=== PATIENT | male | born 1990 | race Caucasian/White ===

== ENCOUNTER 2023-09-03 12:57 | Outpatient (REF) | payer OTHER, SELFPAY | END 2023-09-03 12:58 | disposition home or self-care (01) | LOC: HO.HAP 12:57 | PROVIDERS: Visit Provider Physician Assistant | DX: Z46.1 Encounter for fitting and adjustment of hearing aid (principal); H90.3 Sensorineural hearing loss, bilateral | CPT/HCPCS: 92591; V5275 ==

== ENCOUNTER 2023-10-08 08:47 | Outpatient (REF) | payer OTHER, SELFPAY ==
--- NOTE | 2023-10-08 09:47 | MHC.AU.HA2 ---
Hearing Instrument Fitting- Adult- Binaural Date of Visit: 10/08/23 Hearing Instruments Dispensed: Right Ear: Make, Model, Color, Serial Number: Mike LR 1600 ITC-[id number] SN: [id number] Color: Black Senior Lead Software Engineer Repair Warranty: 10/11/2026 Senior Lead Software Engineer Loss and Damage Warranty: 10/11/2026 [facility] Service Plan: 10/08/2024 Battery Size: Rechargeable Type of Wax Guard: Hear Clear Left Ear: Make, Model, Color, Serial Number: Mike LR 1600 ITC-[id number] SN: [id number] Color: Black Senior Lead Software Engineer Repair Warranty: 10/11/2026 Senior Lead Software Engineer Loss and Damage Warranty: 10/11/2026 [facility] Service Plan: 10/08/2024 Battery Size: Rechargeable Type of Wax Guard: Hear Clear Accessories/Assistive Technology: Mike Custom Geospatial Imagery Intelligence Analyst SN: [id number] Warranty: 10/11/2026 Summary of Fitting: Ran real ear measures then decreased to experience level 2 due to echo sound quality and slight occlusion. Discussed care and use including rechargeability, manually turning on/off, volume control use, and changing wax guard. Practiced insertion and removal. Km was able to manipulate the hearing aids easily. Explained importance of daily, consistent use and acclimatization period. Did not pair to cell phone at this time - will do at follow up. Recommendations: A hearing instrument follow-up was scheduled. Diagnosis Code(s): Primary Diagnosis: H90.6 Mixed Hearing Loss, Bilateral Signature: Provider: Slava Ramachandran, [facility]
== END 2023-10-08 08:48 | disposition home or self-care (01) ==
LOC: HO.HAP 08:47
PROVIDERS: Visit Provider Internal Medicine
DX: Z46.1 Encounter for fitting and adjustment of hearing aid (principal); H90.6 Mixed conductive and sensorineural hearing loss, bilateral
CPT/HCPCS: V5011; V5020; V5160; V5259

== ENCOUNTER 2023-10-29 15:51 | Outpatient (REF) | payer OTHER, SELFPAY | END 2023-10-29 15:52 | disposition home or self-care (01) | LOC: HO.HAP 15:51 | PROVIDERS: Visit Provider Internal Medicine | DX: Z13.89 Encounter for screening for other disorder (principal) ==

== ENCOUNTER 2025-07-11 12:53 | Outpatient (AMB) | payer OTHER, SELFPAY ==
--- NOTE | 2025-07-11 12:55 | MHC.OFFVIS ---
Intake Visit Reasons: 6 month Insomnia Allergies amoxicillin (AMOXICILLIN) Allergy (Unknown, Unverified 07/11/25 13:00) UNKNOWN fluoxetine (From PROZAC) Allergy (Unknown, Unverified 07/11/25 13:00) ANAPHYLAXIS Medication List - Last Reconciled 07/11/25 by Jackelyn Reed CNP bisacodyl 5 mg PO BEDTIME clonazepam (Klonopin) 0.5 mg PO BEDTIME 30 days linaclotide (Linzess) 145 mcg PO DAILY pantoprazole 20 mg PO DAILY tizanidine 4 mg PO BID PRN HPI Comments Details: 35-year-old RH man with h/o chronic vertigo with MRI brain in 2019 revealing bilateral mastoiditis type findings, non-epileptic spells diagnosed as conversion disorder (as per [facility] records, diagnosis made at [facility] with video EEG). He started having these spells when he was 10 years old without any particular emotional stress or trauma. He lost his job in 02/2025, and has been working 3rd shift Friday to since mid-04/2025. He was having trouble adjusting to new schedule and sleep was not so good. Clonazepam was helping. No spells. No medication side effects. Mood was up and down. 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 Anxiety disorder Review of Systems Const Denies chills, Denies daytime sleepiness, Reports difficulty sleeping, Denies fatigue, Denies fever(s), Denies frequent falls, Denies headache(s), Denies increased appetite, Denies poor appetite, Denies snoring, Denies weakness, Denies weight gain and Denies weight loss Eyes Denies loss of vision ENT Denies vertigo, Denies dizziness and Denies headache(s) Card Denies chest pain at rest, Denies chest pain with activity, Denies syncope, Denies leg edema and Denies palpitations Resp Denies snoring GI Denies constipation, Denies heartburn, Denies diarrhea and Denies nausea Denies urinary frequency, Denies urinary incontinence and Denies urinary urgency Musc Denies abnormal gait, Denies numbness and Denies tingling Skin/Breast Denies dry skin and Denies rash Neuro Denies abnormal gait, Denies vertigo, Denies dizziness, Denies syncope, Denies frequent falls, Denies headache(s), Denies lack of coordination, Denies loss of vision, Denies memory loss, Denies numbness, Denies restless legs, Denies seizure-like activity, Denies tingling, Denies paresthesias, Denies tremor(s) and Denies weakness Psych Denies anxiety, Denies depression, Denies auditory hallucinations, Denies memory loss, Denies visual hallucinations and Denies suicidal ideation Endo Denies fatigue and Denies palpitations Physical Exam Const Other: General Appearance:? normal, in no acute distress. Skin:? no rashes, no significant birthmarks. Heart:? S1, S2 normal, no murmurs. Lungs:? clear anteriorly and posteriorly. Extremities:? no edema. Psych:? alert, oriented, cognitive function intact, cooperative with exam. Neuro Other: Mental Status:?Normal attention, orientation, memory and affect.? Cranial Nerves:?Pupils are equal, round and reactive to light. External occular muscles are intact. Visual herrera are full. Face is symmetrical. Facial sensations are normal. Tongue is midline. Palate elevates symmetrically. Shoulder shrugging is normal. Hearing to bedside conversation is normal. Sensory Exam:?....? Coordination:?No ataxia,?no titubation.? Gait Exam: Within normal limits. Extrapyramidal System:?No tremor, rigidity with normal facial expressions.? Pronator Drift:?Not present.? Involuntary Movements:?No tremors seen.? Speech:?Normal.? Results Reviewed Results Reviewed: MRI brain O at [facility] 2019: b/l mastoiditis (reported) Assessment & Plan Assessment & Plan (1) Insomnia: Code(s): G47.00 - Insomnia, unspecified Category: Medical Qualifiers: Insomnia type: unspecified Qualified Code(s): G47.00 - Insomnia, unspecified Plan: Continue clonazepam 0.5mg 1 tablet at bedtime. (2) Anxiety disorder: Code(s): F41.9 - Anxiety disorder, unspecified Category: Medical Qualifiers: Anxiety disorder type: unspecified anxiety disorder Qualified Code(s): F41.9 - Anxiety disorder, unspecified (3) Nonepileptic episode: Code(s): R56.9 - Unspecified convulsions Category: Medical Plan Meds tried: amitriptyline, fluoxetine, buspirone, trazodone Coding Level of Care Code Est Pt Level 4 (78415) Diagnoses Insomnia, unspecified type G47.00 Insomnia type: unspecified Anxiety disorder, unspecified type F41.9 Anxiety disorder type: unspecified anxiety disorder Nonepileptic episode R56.9
--- OUTSIDE RECORDS SUMMARY | 2025-07-11 13:45 | XMS_ITS | Clinical Summary ---
Author Organization [address] [facility] Address [address] [place] [address] Phone Care Team Providers Care Knocker Out Name Role Phone Denys Casey MD Primary Care Provider [phone] Allergies Active Allergy Reactions Criticality Noted Date Comments Amoxicillin 04/04/2014 Very young, unable to comment Fluoxetine Anaphylaxis High 04/04/2014 Zolpidem 04/09/2021 Complex sleep behaviors (sleep walking/talking) Medications clonazePAM (KlonoPIN) 0.5 mg tablet Take 1 tablet (0.5 mg total) by mouth. Prescribed by Neurologist Active linaCLOtide (Linzess) 145 mcg capsule Take 1 capsule (145 mcg total) by mouth 1 (one) time each day. Prescribed by Dr. Montanez. 08/16/20 24 Active tiZANidine (ZANAFLEX) 2 mg tablet Take 1 tablet (2 mg total) by mouth 1 (one) time each day. Prescribed by Ortho. 06/01/20 24 Active MAGNESIUM ORAL Take by mouth 1 (one) time each day. Prescribed by Dr. Wang (Nephrology) Active Laxative, bisacodyl, 5 mg EC tablet Take 1 tablet (5 mg total) by mouth 2 (two) times a day. Do not crush, chew, or split. 60 tablet 3 05/09/20 25 026 Active pantoprazole (PROTONIX) 20 mg EC tabletIndicati ons:Sawyer's esophagus without dysplasia TAKE 1 TABLET BY MOUTH EVERY DAY 90 tablet 1 06/30/20 25 Active pantoprazole (PROTONIX) 20 mg EC tabletIndicati ons:Sawyer's esophagus without dysplasia TAKE 1 TABLET BY MOUTH EVERY DAY 90 tablet 1 01/04/20 25 025 Discontinued azithromycin (ZITHROMAX) 250 mg tablet Take 2 tablets (500 mg total) by mouth 1 (one) time each day for 1 day, THEN 1 tablet (250 mg total) 1 (one) time each day for 4 days. 6 each 06/06/20 25 025 Discontinued clindamycin (CLEOCIN) 300 mg capsule Take 1 capsule (300 mg total) by mouth 4 (four) times a day for 10 days. 40 each 06/15/20 25 025 Active Problems Problem Noted Date Diagnosed Date Gastroesophageal reflux disease without esophagi tis 07/26/2019 Epigastric abdominal pain 07/26/2019 Superficial gastritis with hemorrhage 07/26/2019 Overweight 06/16/2019 Hyperlipidemia 06/16/2019 Hypercalcemia 08/23/2016 Gastroparesis 08/23/2016 Nephrolithiasis 08/23/2016 Psychiatric disorder 08/23/2016 Thoracic disc herniation 08/23/2016 Spina bifida occulta 08/23/2016 Kyphosis 08/23/2016 Sawyer's esophagus 06/28/2016 Overview (09/08/2024): Wilma; 05/13 Recent endoscopy May 24, 2024, per GI, repeat in 5 years. Insomnia 01/31/2016 Scheuermann disease 12/01/2015 Overview (09/08/2024): Per pt's report, followed by ortho Anxiety 02/28/2015 Vertigo 02/28/2015 Increased PTH level 08/15/2014 Vitamin D deficiency 08/15/2014 Sleep apnea 08/15/2014 Conversion disorder with seizures or convulsions 08/15/2014 Obesity 04/04/2014 Encounters Date Type Department Care Team Description 06/15/2025 11:30 AM EDT Office Visit Adult Medicine [address] [phone] Shannon Cespedes, CHIKIS Acute otitis media, unspecified otitis media type (Primary Dx) 06/15/2025 Telephone Adult Medicine [address] [phone] Denys Casey MD ear infection 06/06/2025 11:30 AM EDT Office Visit Adult Medicine [address] [phone] Shannon Cespedes NP Acute otitis media, unspecified otitis media type (Primary Dx) 06/06/2025 Telephone Adult [address] [phone] Denys Casey MD Ear Drainage; Ear Injury 05/09/2025 2:00 PM EDT Office Visit Gastroenterology - [place] [address] [place] [address] Brielle Montanez PA Sawyer's esophagus without dysplasia (Primary Dx); Gastroparesis; Irritable bowel syndrome with constipation from Last 3 Months Immunizations Name Administration Dates Next Due Influenza trivalent, 0.5mL (Fluad) 65yo and olde r 09/05/2021 Influenza, Unspecified 11/09/2023 Moderna SARS-CoV-2 COVID-19, mRNA, LNP-S, preservative free 09/30/2021 Td Tetanus diptheria (Tdvax) 7yo and older 02/22 Tdap Tetanus diptheria acell ular pertussis (Boostrix; Adacel) 7yo and older 08/02/2011 Medical History Medical History Date Comments Sleep apnea 08/15/2014 DX:Sleep apnea Severe obesity (CMS/HCC V24, CMS/HCC V28) 014 DX:Severe obesity (HCC) Conversion disorder with sei zures or convulsions 08/15/2014 DX:Conversion disorder with seizures or convulsions Hypercholesterolemia 08/30/2014 DX:Hypercho lesterolemia Scheuermann disease 12/01/2015 DX:Scheuerma nn disease; COMMENT: Per pt's report, followed by ortho Kidney stone 09/04/2017 DX:Kidney stone; COMMENT: Documented kidney stone, multiple visits with [facility] in area ERs, 17 opiates prescriptions in 12 months, as noted by ER staff. ER has concern for patient altering urine obtained opiates Family History Medical History Relation Name Comments Other: no info on father's side Father Other: chronic back pain Mother Relation Name Status Comments Father Mother Alive Social History Tobacco Use Types Packs/Day Years Used Date Smoking Tobacco: Never Smokeless Tobacco: Never Tobacco Cessation:Counseling Given: Not Answered Alcohol Use Standard Drinks/Week Comments No 0 (1 standard drink = 0.6 oz pur e alcohol) Sex and Gender Information Value Date Recorded Sex Assigned at Not on file Legal Sex Male 10:47 AM EST Gender Identity Not on file Sexual Orientation Not on file Obstetrics History Last Filed Vital Signs Vital Sign Reading Time Taken Comments Blood Pressure 118/76 06/15/2025 11:12 AM EDT Pulse 80 06/15/2025 11:12 AM EDT Temperature 36.2 C (97.1 F) 06/15/2025 11:12 AM EDT Respiratory Rate 14 06/15/2025 11:12 AM EDT Oxygen Saturation 98% 05/09/2025 2:06 PM EDT Inhaled Oxygen Concentration - - Weight 117 kg (257 lb) 06/15/2025 11:12 AM EDT Height 190.5 cm (6' 3 ) 06/15/2025 11:12 AM EDT Body Mass Index 32.12 06/15/2025 11:12 AM EDT Plan of Treatment Upcoming Encounters Date Type Department Care Team (Late st Contact Info) Description 07/11/2025 3:30 PM EDT Office Visit Adult Medicine [facility] [address] [place] [phone] Denys Casey MD [address] [place] [address] 12/12/2025 2:00 PM EST Office Visit Gastroenterology - [place] [address] [place] [phone] Brielle Montanez PA [address] [place] [address] Health Maintenance Due Date Last Done Comments Hepatitis B Vaccines (1 of 3 - 19+ 3-dose series) 02/11/2007 HIV Screening 10/22/2022 Hepatitis C Screening 10/22/2022 Social Influencers of Health Screening 01/24/2024 01/23/2023 COVID-19 Vaccine (2023- season) 2024 11/09/2023, 08/26/2022, 09/30/2021, Additional history exists Depression Screening 11/24/2024 Influenza Vaccine (#1) 2025 3, 09/05/2021, 10/07/2016, Additional history exists DTaP,Tdap,and Td Vaccines (4 - Td or Tdap) 02/23/2028 02/22/2018, 08/05/2017, 08/02/2011 Cholesterol Screening (Lipid Panel) 07/08/2030 07/08/2025, 05/03/2024 HIB Vaccines Aged Out No longer eligi ble based on patient's age to complete this topic HPV Vaccines Aged Out No longer eligi ble based on patient's age to complete this topic Hepatitis A Vaccines Aged Out No long er eligible based on patient's age to complete this topic IPV Vaccines Aged Out No longer eligi ble based on patient's age to complete this topic MMR Vaccines Aged Out No longer eligi ble based on patient's age to complete this topic Meningococcal ACWY Vaccine Aged Out N o longer eligible based on patient's age to complete this topic Meningococcal B Vaccine Aged Out No l onger eligible based on patient's age to complete this topic Pneumococcal Vaccine: Pediatrics (0 to 5 Years) and At-Risk Patients (6 to 49 Years) Aged Out No longer eligible based on patient's age to complete this topic RSV Immunization Patients Under 20 months Aged Out No longer eligible based on patient's age to complete this topic Varicella Vaccines Aged Out No longer eligible based on patient's age to complete this topic Procedures Procedure Name Priority Date/Time Associated Diagnosis Comments LIPID PANEL WITH REFLEX TO DIRECT LDL Routine 07/08/2025 4:06 PM EDT Other hyperlipidemia from Last 3 Months Results * (ABNORMAL) Lipid panel with reflex to direct LDL (07/08/2025 4:06 PM EDT) Cholesterol 266(H) 0 - 200 mg/dL LAB CHEMISTRY METHOD 07/08/2025 7:[address] [facility] Triglycerides 154(H) 0 - 150 mg/dL LAB CHEMISTRY METHOD 07/08/2025 7:[address] [facility] HDL 69 >=40 mg/dL LAB CHEMISTRY METHOD 07/08/2025 7:[address] [facility] LDL Calculated 166(H) 0 - 100 mg/dL LAB CHEMISTRY METHOD 07/08/2025 7:[address] [facility] Comment:Estimated LDL Calcul ated using equation: Total cholesterol - HDL cholesterol - (Triglycerides/5) VLDL Cholesterol Dain 30.8 mg/dL LAB CHEMISTRY METHOD 07/08/2025 7:[address] [facility] Non HDL Chol. (LDL+VLDL) 197(H) <145 mg/dL LAB CHEMISTRY METHOD 07/08/2025 7:[address] [facility] Chol/HDL Ratio 3.9 0.0 - 4.4 LAB CHEMISTRY METHOD 07/08/2025 7:[address] [facility] Blood Venous blood specimen / Unknown Venipuncture / Unknown 07/08/2025 4:06 PM EDT 07/08/2025 4:06 PM EDT Denys Casey MD LAB BLOOD ORDERABLES Final Resul t 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 Health Care Decision (hx) 05/18/2015 AD SILVERIO DIRECTIVE Health Care Decision (hx) 05/18/2015 AD SILVERIO DIRECTIVE Health Care Decision (hx) 05/18/2015 AD SILVERIO DIRECTIVE Health Care Decision (hx) 05/18/2015 AD SILVERIO DIRECTIVE Health Care Decision (hx) 05/18/2015 AD SILVERIO DIRECTIVE Health Care Decision (hx) 05/18/2015 AD SILVERIO DIRECTIVE Health Care Decision (hx) 05/18/2015 AD SILVERIO DIRECTIVE Health Care Decision (hx) 05/18/2015 AD SILVERIO DIRECTIVE Health Care Decision (hx) 05/18/2015 AD SILVERIO DIRECTIVE Health Care Decision (hx) 05/18/2015 AD SILVERIO DIRECTIVE Health Care Decision (hx) 05/18/2015 AD SILVERIO DIRECTIVE Care Teams Knocker Out Relationship Specialty Start Date End Date Denys Casey MD [address] [place] [address] PCP - General Internal Medicine 04/04/14
--- OUTSIDE RECORDS SUMMARY | 2025-07-11 13:45 | XMS_ITS | Encounter Summary ---
Author Organization [facility] Address [address] [place] [address] Care Team Providers Care Mixing Engineer Name Role Phone Denys Casey MD Primary Care Provider [phone] Denys Casey MD Unavailable Encounter Details Date Type Department Care Team Description 05/17/2019 Public Records Researcher Report Medical Records [address] [place] [id number] Enzo Ewing MD Social History Tobacco Use Types Packs/Day Years Used Date Smoking Tobacco: Never Smokeless Tobacco: Never Alcohol Use Standard Drinks/Week Comments No 0 (1 standard drink = 0.6 oz pur e alcohol) Sex Assigned at Date Recorded Male 10/15/2022 4:[address] Job Start Date Occupation Industry Not on file Not on file Not on file documented as of this encounter Plan of Treatment Not on file documented as of this encounter Visit Diagnoses Not on filedocumented in this encounter Care Teams Mixing Engineer Relationship Specialty Start Date End Date Denys Casey MD [address] [place] [address] [phone] PCP - General 07/16/14 Denys Casey MD [address] [place] [address] [phone] Internal Medicine 07/16/14 documented as of this encounter
--- OUTSIDE RECORDS SUMMARY | 2025-07-11 13:46 | XMS_ITS | Clinical Summary ---
Author Organization [facility], Address [address] [place] [address] [place] [address] Phone Care Team Providers Care Field Clinical Engineer Name Role Phone Denys Casey MD Primary Care Provider [phone] Allergies Active Allergy Reactions Criticality Noted Date Comments Amoxicillin Other (see comments) 04/04/2014 Very young, unable to comment Fluoxetine Other (see comments) 09/26/2020 Zolpidem 04/09/2021 Complex sleep behaviors (sleep walking/talking) Medications pantoprazole (PROTONIX) 40 MG EC tablet Take 40 mg by mouth 1 (one) time each day before breakfast Do not crush, chew, or split. 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 Overview (09/26/2020): Per pt's report, followed by ortho Conversion disorder with seizures or convulsions 08/15/2014 Vitamin D deficiency 08/15/2014 Nephrolithiasis Overview (10/01/2023): recurrent Immunizations Immunization Administration Dates Next Due Influenza Split High Dose Pr eservative Free IM 09/05/2021,10/07/2016,08/21/2015 Moderna SARS-COV-2 12/29/2020,12/01/2020 Td 02/22/2018 Tdap 08/02/2011 Family History Medical History Relation Comments Kidney disease Mother Relation Status Comments Mother Social History Tobacco Use Types Packs/Day Years Used Date Smoking Tobacco: Never Tobacco Cessation:Counseling Given: Not Answered Alcohol Use Standard Drinks/Week Comments No 0 (1 standard drink = 0.6 oz pur e alcohol) Sex and Gender Information Value Date Recorded Sex Assigned at Not on file Legal Sex Male 4:33 PM EST Gender Identity Not on file Sexual Orientation Not on file Last Filed Vital Signs Vital Sign Reading Time Taken Comments Blood Pressure 110/70 10/01/2023 1:42 PM EST Pulse 74 10/01/2023 1:42 PM EST Temperature - - Respiratory Rate - - Oxygen Saturation - - Inhaled Oxygen Concentration - - Weight 131 kg (288 lb) 10/23/2018 12:00 PM EST Height 190.5 cm (6' 3 ) 10/23/2018 12:00 PM EST Body Mass Index 36 10/23/2018 12:00 PM EST Plan of Treatment Upcoming Encounters Date Type Department Care Team (Late st Contact Info) Description 08/19/2025 3:45 PM EDT Office Visit [facility], [address] [place] [phone] Michael Wang DO [address] [place] [phone] Health Maintenance Due Date Last Done Comments Hepatitis B Vaccine (1 of 3 - 19+ 3-dose series) 02/11/2007 Pneumococcal Vaccine: Peds ( 0 to 5 Years) and At-Risk Patients (6 to 49 Years) (1 of 2 - PCV) 02/11/2007 Influenza Vaccine (#1) 2025 3, 09/05/2021, 10/07/2016, Additional history exists Insurance [facility] [employer] Care Teams Field Clinical Engineer Relationship Specialty Start Date End Date Denys Casey MD PCP - General 09/28/19
--- OUTSIDE RECORDS SUMMARY | 2025-07-11 13:46 | XMS_ITS | Patient Health Record ---
Demographics Address [address] [place] [address] Preferred Language en Marital Status Unknown Adventism Affiliation Unknown Race White Ethnic Group Not or Lati no Author Organization [facility] Address [address] [place] [address] Care Team Providers Care Parimutuel Ticket Cashier Name Role Phone Denys Casey Primary Care Provider Unavailabl e Allergies Allergen (clinical drug ingredient) Drug/Non Drug Allergy documented on EMR Reaction Allergy Type Onset Date Status amoxicillin Amoxicillin Unknown Drug Allergy Act rita fluoxetine Prozac Unknown Drug Allergy Active Reason For Referral No Information Medications Medication SIG (Take, Route, Frequency, Duration) Notes Start Date End Date Status oxyCODONE HCl 5 MG Orally N ot-Taking Niacin 250 MG 1 tablet Orally Once a day Active Tylenol Extra Strength 500 MG 2 tablet as needed Orally every 6 hrs Active Gabapentin 100 MG 1 tablet Orally Thre e times a day; Duration: 30 days 04/29/2016 Active Linzess 290 MCG 1 capsule Orally Onc e a day Active tiZANidine HCl 4 MG 1-2 tablets a day Orally twice a day Active Omeprazole 20 MG 2 capsules Orally On ce a day Active Vitamin D 2000 UNIT 1 tablet Orally Once a day Active Ondansetron 4 MG 1 tablet on the tong ue and allow to dissolve Orally every 8 hrs Not-Taking Social History Tobacco Use: Social History Observation Description Date Details (start date - stop date) Never Smoker NA - NA Tobacco Use/Smoking Question Answer Notes Are you a nonsmoker Plan Of Treatment No Information Insurance Providers Payer Name Payer Address Payer Phone Subscriber Number Group Number Insured Name Patient Relationship to Insured Coverage Start Date Coverage End Date [facility] [address] [address] [place] [address] [id number] KELLY HARRIS Self - patient is the insured Medical (General) History Medical History History ICD Code reflux blood in stools abdominal pain disc disease joint pain vertigo kyphosis anxiety orthostatic tachycardia kidney stones hearing loss gastroparesis Surgical History Surgery Date(Month/Year) 4 uteroscopic lithotripsies [phone] tubes in/out of ears x8 hemorrhoidectomy 06/18/16
--- OUTSIDE RECORDS SUMMARY | 2025-07-11 13:46 | XMS_ITS ---
[facility] Name [facility] Care Team Organization Name Specialty Phone Email Start Date End Da senait [facility] 10/01/2022 07/12/2024
== END 2025-07-11 13:08 | disposition home or self-care (01) ==
LOC: HO.HSM 12:54
PROVIDERS: PCP Internal Medicine; Referring Provider Internal Medicine; Visit Provider Registered Nurse
DX: G47.00 Insomnia, unspecified (principal); F41.9 Anxiety disorder, unspecified; R56.9 Unspecified convulsions
CPT/HCPCS: 99214

== ENCOUNTER → 2025-07-11 12:53 | Outpatient (BNVA) | payer OTHER, SELFPAY | PROVIDERS: PCP Internal Medicine; Referring Provider Internal Medicine; Visit Provider Registered Nurse | DX: G47.00 Insomnia, unspecified (principal); F41.9 Anxiety disorder, unspecified; R56.9 Unspecified convulsions; Z79.899 Other long term (current) drug therapy | CPT/HCPCS: 99212 ==